=== PATIENT | female | born 1960 | race Caucasian/White ===

== ENCOUNTER 2018-07-05 17:07 | Inpatient (IN) ==
[2018-07-05] MEDS ORDERED: SODIUM CHLORIDE 0.9% INJ SCH (17:30)
[2018-07-05] MEDS ORDERED: NS 1,000 ML IV SCH (17:30)
--- NOTE | 2018-07-05 18:29 | Diag Imaging Result Doc PS360 ---
CT IVP (RENAL STONE SEARCH) - 07/05/2018 INDICATION: Right staghorn calculus TECHNIQUE: COMPARISON: 02/07/2011 FINDINGS: The lung bases are clear and the heart size is normal. There is mild fatty change of the liver. There are cholecystectomy clips. There are several large right renal stones. The largest measures about 1.4 cm. No left-sided stones. No hydronephrosis or significant hydroureter. There is some hazy edema about the diverticula in the sigmoid colon. This suggests sigmoid diverticulitis. No free air or drainable fluid collection. There is some fluid in the endometrial canal of the uterus. Urinary bladder and rectum are normal. There are advanced degenerative changes of the spine and pelvis. No acute bony lesions. IMPRESSION: 1. Several large nonobstructing stones in the right kidney. 2. Hazy edema at the sigmoid colon consistent with sigmoid diverticulitis. No complication. 3. Significant fluid in the endometrium. Recommend a follow-up pelvic ultrasound in 2-3 months. Electronically signed by Royce Jain 07/05/2018 6:26 PM
[2018-07-05] MEDS: DILAUDID IV PRN ×2 (19:06→23:18)
[2018-07-05] MEDS: LOVENOX SUBQ SCH (19:07)
[2018-07-05] MEDS: LEVAQUIN 500 MG/D5W 500 MG/100 ML IVPB IV SCH (19:07)
[2018-07-05] MEDS: PROTONIX IV SCH (19:07)
[2018-07-05] MEDS: NS 1,000 ML IV SCH (19:14)
[2018-07-05] MEDS: ZOFRAN IV PRN (19:35)
[2018-07-06] MEDS: ZOFRAN IV PRN ×2 (00:50→11:41)
--- NOTE | 2018-07-06 03:44 | HISTORY AND PHYSICAL ---
CHIEF COMPLAINT: A one day history of right colicky pain going to the groin. HISTORY OF PRESENT ILLNESS: She is a 57-year-old, white female with a known history of kidney stones, under the care of Dr. Garcia. Came in with right renal colicky pain. KUB showed staghorn calculus, at least 3 stones on the right side. Pain is 8/10. White cell count 12,000. She is dehydrated. Urinalysis positive for infection. Admitted to the hospital for IV fluids, IV antibiotics, and further workup. 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 PAST SURGICAL HISTORY: Lithotripsy, tonsillectomy, cholecystectomy, section x1. MEDICINES: Hyzaar 100/12.5 daily, potassium citrate 1 tablet daily, Ultracet t.i.d. ALLERGIES: Amoxicillin. 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 No smoking. No alcohol. FAMILY HISTORY: Father of respiratory failure with chronic obstructive pulmonary disease and diabetic complications. Mom is 79 years old, healthy. HEALTH MAINTENANCE: Flu vaccine declined. Pneumococcal vaccine is not up to date. Last tetanus 2002. Last mammography [address] Raman. Colonoscopy in [address] Ashraf. REVIEW OF SYSTEMS: HEENT: No headache. No vision problem. No earache. No sore throat. Neck: There is no goiter. No lymphadenopathy. No bruit. Cardiopulmonary: No chest pain, shortness of breath, PND, orthopnea. GI: Right colicky plain since yesterday, and nausea and vomiting. No altered bowel habits. No bleeding per rectum. : No history of dysuria, hesitancy, or frequency. Musculoskeletal: No swelling of legs. No joint pain. Neurologic: No focal symptoms or weakness. PHYSICAL EXAMINATION: VITAL SIGNS: Temperature is 98 degrees. Vitals are stable. GENERAL: Morbidly obese. HEENT: Atraumatic, normocephalic. Pupils equal, react to light. TMs are normal. Nose and throat within normal limits. NECK: Supple. No lymphadenopathy. No goiter. CHEST: There is bilateral air entry. HEART: Heart sounds are distant. ABDOMEN: Belly is soft. Suboptimal exam. Tender in the right side of the abdomen. No signs of peritonitis. NEUROLOGIC: No obvious neurological deficits. INVESTIGATIONS: In Med-Surge, CBC, white cell count 12,000. Urinalysis positive for infection. KUB showed a staghorn calculus on the right side. ASSESSMENT AND PLAN: 1. A 57-year-old, white female admitted to the hospital with right colicky pain. KUB showing staghorn calculus with an elevated white cell count, blood in the urine. Plan is intravenous fluids, Dilaudid for pain, Zofran for nausea, deep venous thrombosis and gastrointestinal prophylaxis with Lovenox and Protonix respectively. 2. Continue intravenous antibiotics. 3. CT renal stone search. Based on that, further recommendations followed and we will reconcile home medications. We will check the labs in the morning. cc: Elver Kinsey MD
[2018-07-06] MEDS: NS 1,000 ML IV SCH ×3 (04:19→22:01)
[2018-07-06 07:35] LABS: BASO# 0.02 X1000 (0.0-0.2); BASO% 0.2 % (0.0-0.8); EOS# 0.02 X1000 (0.0-0.7); EOS% 0.2 % (0.0-10.0); HEMATOCRIT 41.6 % (37.0-47.0); HEMOGLOBIN 13.2 g/dL (12.0-16.0); IMM GRAN# 0.03 X1000 (0.0-0.04); IMM GRAN% 0.3 % (0.0-0.5); LYMPH% 21.3 % (20.5-51.1); MCH 28.9 PG (27-31); MCHC 31.7 g/dL (33-37); MCV 91.2 FL (81-99); MONO# 0.99 X1000 (0.11-0.59); MONO% 9.2 % (1.7-9.3); NEUT# 7.42 X1000 (1.4-6.5); NEUT% 68.8 % (42.2-75.2); PLT 218 X1000 (130-400); RBC 4.56 XMIL (4.2-5.4); WBC 10.78 X1000 (4.8-10.8)
[2018-07-06 08:02] LABS: AGAP 8; ALB/GLOB RATIO 1.3; ALBUMIN 3.4 g/dL (3.5-5.0); ALKALINE PHOSPHATASE 57 U/L (32-104); BUN 11 mg/dL (8-22); CALCIUM 8.5 mg/dL (8.8-10.2); CHLORIDE 99 mmol/L (98-107); COSMO 274; CREATININE 0.9 mg/dL (0.5-0.9); ESTIMATED GFR > 60; GLUCOSE 148 mg/dL (70-104); GOT 20 U/L (10-30); GPT 22 U/L (10-36); POTASSIUM 4.4 mmol/L (3.5-5.1); SODIUM 136 mmol/L (136-145); TCO2 29 mmol/L (25-35); TOTAL BILIRUBIN 4.62 mg/dL (0.20-1.00)
--- NOTE | 2018-07-06 09:16 | Diag Imaging Result Doc PS360 ---
EXAM: US PELVIC NON-OB COMPLETE 07/06/2018 HISTORY: endometrial fluid TECHNIQUE: Transabdominal and endovaginal scan COMMENT: There is loculated fluid in the lower uterine segment endometrial canal including the cervix. There is no evidence of free fluid. The ovaries are not identified. IMPRESSION: Loculated fluid collection versus multiple cysts in the lower uterine segment. It may be desirable to correlate this with an hCG level as this appearance can be present in a hydatidiform mole. Electronically signed by Saad Soto 07/06/2018 9:13 AM
[2018-07-06] MEDS: DILAUDID IV PRN (11:41)
[2018-07-06] MEDS: LEVAQUIN 500 MG/D5W 500 MG/100 ML IVPB IV SCH ×2 (16:18→17:13)
[2018-07-06] MEDS: LOVENOX SUBQ SCH ×2 (16:19→17:14)
[2018-07-06] MEDS: PROTONIX IV SCH ×2 (16:20→17:14)
--- NOTE | 2018-07-07 01:37 | PROGRESS NOTE ---
DATE: 07/06/2018 SUBJECTIVE: The patient is still in pain. Findings of CT discussed with the patient. Rest of the review of systems are normal. PHYSICAL EXAMINATION: Vital Signs: Temperature is 97 degrees, pulse is 72, blood pressure is 139/68. General: Morbidly obese. HEENT: Within normal limits. Neck: Supple. No lymphadenopathy. Chest: Clear to auscultation. Heart: Sounds are regular. Abdomen: Belly is soft. Decreased tenderness. Neurological: No obvious neurological deficits. LABORATORY INVESTIGATIONS: CBC and BMP were normal. Total bilirubin 4.62. ASSESSMENT AND PLAN: 1. Abdominal pain. CT scan findings discussed with the patient. She has multiple staghorn calculi on the right side without pyelonephrosis or hydronephrosis. 2. Sigmoid diverticulitis. Continue intravenous Levaquin. Consider also Flagyl. 3. Endometrial fluid. Pelvic ultrasound ordered. 4. Deep venous thrombosis and gastrointestinal prophylaxis with intravenous Lovenox and Protonix 5. Slowly advance the diet. Follow up on pelvic ultrasound. 6. Elevated bilirubin due to worsening of Gilbert syndrome. Currently stable and we will follow up. LEVEL OF DOCUMENTATION: 35 minutes. cc: Elver Kinsey MD
[2018-07-07] MEDS: NS 1,000 ML IV SCH ×3 (06:02→18:36)
[2018-07-07] MEDS: DILAUDID IV PRN ×2 (09:05→20:31)
[2018-07-07] MEDS: FLAGYL PO SCH ×3 (09:05→16:49)
[2018-07-07] MEDS: LOVENOX SUBQ SCH (16:49)
[2018-07-07] MEDS: PROTONIX IV SCH (16:49)
[2018-07-07] MEDS: LEVAQUIN 500 MG/D5W 500 MG/100 ML IVPB IV SCH (16:49)
[2018-07-07] MEDS: ZOFRAN IV PRN (20:31)
--- NOTE | 2018-07-08 02:43 | PROGRESS NOTE ---
DATE: 07/07/2018 SUBJECTIVE: The patient is a little better, 3/10 pain in the left lower quadrant. PHYSICAL EXAMINATION: Vital Signs: Temperature is 96, pulse is 72, blood pressure is 156/90, 98% on room air. HEENT: Within normal limits. Neck: Supple. Chest: Bilateral air entry. Heart: Sounds are regular. Abdomen: Belly is soft, obese. No signs of peritonitis. ASSESSMENT AND PLAN: 1. Diverticulitis. Continue on IV fluids, advance full liquid diet, continue on Levaquin and Flagyl. 2. Deep vein thrombosis and gastrointestinal prophylaxes. As per order sheets. 3. Elevated unconjugated hyperbilirubinemia due to Gilbert syndrome. 4. Zofran for nausea. 5. Endometrial fluid on pelvic ultrasound. Will set up outpatient with Dr. Magana for a D and C. 6. Kidney stones on the right side, stable. Follow up with Dr. Garcia. LEVEL OF DOCUMENTATION: 35 minutes. cc: Elver Kinsey MD
[2018-07-08] MEDS: NS 1,000 ML IV SCH ×2 (03:36→08:09)
[2018-07-08] MEDS: FLAGYL PO SCH ×3 (08:09→16:47)
[2018-07-08] MEDS ORDERED: NS 1,000 ML IV SCH (08:30)
[2018-07-08] MEDS: DILAUDID IV PRN (11:26)
[2018-07-08] MEDS: LOVENOX SUBQ SCH (16:47)
[2018-07-08] MEDS: LEVAQUIN 500 MG/D5W 500 MG/100 ML IVPB IV SCH (16:47)
[2018-07-08] MEDS: PROTONIX IV SCH (16:47)
--- NOTE | 2018-07-09 05:21 | PROGRESS NOTE ---
DATE: 07/08/2018 SUBJECTIVE: The patient is a little better, and still has pain upon coughing in the lower abdomen. No fever. OBJECTIVE: Vital Signs: On temperature, 97 degrees. Vitals are stable. HEENT : Within normal limits. Neck: Supple. No lymphadenopathy. Chest: Clear. Heart: Sounds are regular. Abdomen: Belly is soft, obese, and nontender. Good bowel sounds. No signs of peritonitis. No neurological deficits. ASSESSMENT AND PLAN: Abdominal pain due to sigmoid diverticulitis. Previous colonoscopy is negative. Continue on Levaquin and Flagyl. Advanced the diet. Decreased IV fluids. DVT and GI prophylaxis as per order sheet. We will arrange outpatient Dr. Magana. Consult for endometrial biopsy. If she is stable, we will discharge in the morning. LEVEL OF DOCUMENTATION: 25 minutes. cc: Elver Kinsey MD MTDD
[2018-07-09 07:47] VITALS: BP 179/89
[2018-07-09] MEDS: FLAGYL PO SCH (08:19)
--- NOTE | 2018-07-11 20:41 | DISCHARGE SUMMARY ---
ADMISSION DATE: 07/05/2018 DISCHARGE DATE: 07/09/2018 DISCHARGING DIAGNOSIS: 1. Abdominal pain due to sigmoid diverticulitis. 2. Staghorn calculus, multiple kidney stones on the right side. 3. Complex endometrial fluid symptomatic. 4. Metabolic syndrome. 5. Acid reflux disease. 6. Gilbert syndrome. 7. Hypertension. 8. Thyroid cyst on the left side stable. BRIEF HISTORY: Please see the H and P that was done on 07/05/2018. In brief she is a 57-year-old white female basically came in with abdominal pain on the right side with known history of kidney stones suspicious for hydronephrosis. She was very tender. Exam is suboptimal due to obesity. HOSPITAL COURSE: CT scan of the abdomen and pelvis done, it showed multiple kidney stones on the right side, fluid in the endometrium and sigmoid diverticulitis. Patient was given antibiotics with Levaquin and Flagyl and symptomatic treatment for pain. Slowly advance the diet. She still has some pain in the lower abdomen. Pelvic ultrasound showed complex fluid etiology to determine. She was postmenopausal, was seen before by Dr. Raman who retired from the practice. The patient possibly needs further [employer] SYSTEMS [employer]CHIT[employer] evaluation as an outpatient and D and C. LABS: CBC. White cell count 10, hematocrit 41, platelets 218,000. SMA 7 sodium 136, potassium 4.4, BUN 11, creatinine 0.9, glucose 148, total bilirubin 4.6. LFTs were normal. Urine cultures showed mixed rob. The patient was stable at the time of discharge. DISCHARGE INSTRUCTIONS: 1. Hyzaar 100/12.5 daily, Flagyl 500 t.i.d., Ultracet 1 tablet q.6 p.r.n. pain, Levaquin 500 daily for 7 days, probiotics. Follow up in my office next week. She is going to see Dr. Garcia for staghorn calculus on the right side. Continue on Urocit potassium with lemonade as discussed. 2. Last colonoscopy was done and was unremarkable. Outpatient [employer]FORMATION SYSTEMS [employer]CHITECT consult for endometrial evaluation, possible D and C. cc: Elver Kinsey MD
== END 2018-07-09 10:42 | disposition home or self-care (01) | DRG 392 ==
LOC: DIRADM → OBSVTOIN 17:07 → 3N 17:27
PROVIDERS: ADMIT Internal Medicine; ATTEND Internal Medicine
CPT/HCPCS: 74176; 76856; 80053; 85025; 87088; A9270; C9113; J1170; J1650; J1956; J2405; J7030; S0164